=== PATIENT | male | born 1945 | race Caucasian/White ===

== ENCOUNTER → 2024-10-20 13:15 | Outpatient (REF) | payer OTHER, SELFPAY ==
[2024-10-20 14:22] LABS: % Eosinophils 4.1 % (0-6); % Immature Granulocytes 0.3 % (0-0.5); % Lymphocytes 14.5 % (20.5-51.1); % Monocytes 11.3 % (1.7-9.3); % Neutrophils 68.8 % (42.2-75.2); Absolute Basophils 0.1 10^3/uL (0-0.2); Absolute Eosinophils 0.3 10^3/uL (0-0.7); Absolute Monocytes 0.8 10^3/uL (0.1-0.6); Absolute Neutrophils 4.6 10^3/uL (1.4-6.5); Hematocrit 41.7 % (39.0-52.0); Hemoglobin 13.8 g/dL (13.0-18.0); Mean Corp Hgb Conc. 33.1 g/dL (33.0-37.0); Mean Corpuscular Hgb 33.3 pg (27.0-31.0); Mean Corpuscular Volume 100.7 fL (80.0-94.0); Mean Platelet Volume 9.9 fL (7.4-10.4); Nucleated Red Blood Cells % 0 % (-); Platelet Count 175 10^3/uL (130-400); Red Blood Cell Count 4.14 10^6/uL (4.70-6.10); Red Cell Dist. Width 13.9 % (11.5-14.5); White Blood Cell Count 6.8 10^3/uL (4.8-10.8)
[2024-10-20 14:35] LABS: Blood Urea Nitrogen 30 mg/dl (9-20); Calcium 9.8 mg/dl (8.4-10.2); Carbon Dioxide 26 mmol/L (22-30); Chloride 108 mmol/L (98-107); Glucose 81 mg/dl (70-99); Potassium 4.7 mmol/L (3.5-5.1); Sodium 139 mmol/L (135-145); eGFR 56.23
== END ==
LOC: RCS 13:15
PROVIDERS: ATTENDING PHYSICIAN Orthopaedic Surgery Hand Surgery
DX: Z01.818 Encounter for other preprocedural examination (principal)
CPT/HCPCS: 36415; 80048; 85025; 93005

== ENCOUNTER 2024-11-04 06:19 | Day surgery (SDC) | payer OTHER, SELFPAY ==
--- NOTE | 2024-11-03 11:22 | PTCARENOTE ---
Abnormal eGFR 56.23 collected 10/20/24 reported to Loretta at Dr Finn's office.
--- NOTE | 2024-11-03 14:18 | PTCARENOTE ---
Abnormal ECG done 10/20/[address] Howard, no further intervention requested.
[2024-11-04] VITALS (9 sets, daily range): BP systolic 113–131; BP diastolic 50–89; BMI 26.6
[2024-11-04] MEDS: TYLENOL 1000 MG PO (11:49)
[2024-11-04] MEDS: CELEBREX 200 MG PO (11:50)
[2024-11-04] MEDS: NORMOSOL-R/PLASMALYTE-A 1000 IV (11:50)
== END 2024-11-04 16:45 | disposition home or self-care (01) ==
LOC: SDS 06:19
PROVIDERS: ATTENDING PHYSICIAN Orthopaedic Surgery Hand Surgery; FAMILY PHYSICIAN Family Medicine
DX: S46.011A Strain of muscle(s) and tendon(s) of the rotator cuff of right shoulder, initial encounter (principal); M75.41 Impingement syndrome of right shoulder; S46.221A Laceration of muscle, fascia and tendon of other parts of biceps, right arm, initial encounter; X58.XXXA Exposure to other specified factors, initial encounter
CPT/HCPCS: 29827; 29828; C1713